=== PATIENT | male | born 1995 | race Caucasian/White ===

== ENCOUNTER 2018-07-24 17:32 | Emergency (ER) | payer OTHER ==
[~2018-07-24] VITALS: Ht 165.1 cm; Wt 74.5 kg
[2018-07-24] MEDS ORDERED: MULT1TAB18 PO (17:41)
--- NOTE | 2018-07-24 18:00 | ECGEPIP ---
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
[2018-07-24 18:38] LABS: BASO # 0.1 10^3/uL (0.0-0.2); BASO % 0.4 % (0.0-1.0); EOS # 0.1 10^3/uL (0.0-0.50); EOS % 1.1 % (0.0-3.0); HEMATOCRIT 44.2 % (42.0-52.0); HEMOGLOBIN 15.6 g/dl (13.5-17.5); LYMPH # 3.5 10^3/uL (1.5-6.5); LYMPH % 28.2 % (24.0-44.0); MEAN CORPUSCULAR HEMOGLOBIN 29.9 pg (27.0-33.0); MEAN CORPUSCULAR HGB CONC 35.3 g/dl (32.0-36.5); MEAN CORPUSCULAR VOLUME 84.7 fl (80.0-96.0); MONO # 0.6 10^3/uL (0.0-0.8); MONO % 4.5 % (0.0-5.0); NEUTROPHILS # 8.2 10^3/uL (1.8-7.7); NEUTROPHILS % 65.5 % (36.0-66.0); PLATELET COUNT, AUTOMATED 261 10^3/uL (150-450); RED BLOOD COUNT 5.22 10^6/uL (4.30-6.10); WHITE BLOOD COUNT 12.5 10^3/uL (4.0-10.0)
[2018-07-24 19:11] LABS: ALBUMIN 4.1 GM/DL (3.2-5.2); ALT/SGPT 44 U/L (12-78); BILIRUBIN,DIRECT 0.2 MG/DL (0.0-0.2); BILIRUBIN,TOTAL 0.6 MG/DL (0.2-1.0); BLOOD UREA NITROGEN 14 MG/DL (7-18); CALCIUM LEVEL 9.3 MG/DL (8.5-10.1); CARBON DIOXIDE LEVEL 31 MEQ/L (21-32); CHLORIDE LEVEL 102 MEQ/L (98-107); CPK CREATINE PHOSPHOKINASE 365 U/L (39-308); CREATININE FOR GFR 1.65 MG/DL (0.70-1.30); GLUCOSE, FASTING 104 MG/DL (70-100); LIPASE 80 U/L (73-393); MB/CK RELATIVE INDEX 0.74 (< OR =4); SODIUM LEVEL 141 MEQ/L (136-145); TOTAL PROTEIN 7.2 GM/DL (6.4-8.2); TROPONIN I < 0.02 NG/ML (< 0.10)
--- NOTE | 2018-07-24 19:52 | REPVR ---
EXAM: US Scrotum EXAM DATE/TIME: 07/24/2018 7:45 PM CLINICAL HISTORY: 22 years old, male; Pain; Scrotum pain; Additional info: Right side testicular pain TECHNIQUE: Real-time ultrasound of the scrotum and contents with color Doppler and image documentation. COMPARISON: No relevant prior studies available. FINDINGS: Right Testicle: The right testis is normal in size, shape and echotexture. It measures 4.3 cm x 2.1 cm x 2.3 cm. No intratesticular mass. Normal color Doppler blood flow. No torsion. Left Testicle: The left testis is normal in size, shape and echotexture. It measures 4.1 cm x 2.0 cm x 2.4 cm. No intratesticular mass. Normal color Doppler blood flow. No torsion. Epididymides: The right and left epididymis have normal appearances. Scrotum: No varicoceles or hernias are identified. IMPRESSION: Normal scrotal ultrasound. Electronically signed by: Silver Brambila On 07/24/2018 19:52:09 PM
[2018-07-24 20:37] LABS: CPK CREATINE PHOSPHOKINASE 379 U/L (39-308); MB/CK RELATIVE INDEX 0.74 (< OR =4); TROPONIN I < 0.02 NG/ML (< 0.10)
[2018-07-24 20:50] VITALS: BP 125/79
--- NOTE | 2018-07-25 08:35 | REP ---
Clinical: Acute chest pain . Comparison: None . Technique: PA and lateral. Findings: The mediastinum and cardiac silhouette are normal. The lung baires are clear and without acute consolidation, effusion, or pneumothorax. The skeletal structures are intact and normal. Impression: 1. No acute cardiopulmonary process. Electronically Signed by Geronimo Schwab MD 07/25/2018 08:26 A
--- NOTE | 2018-07-26 07:29 | ECGEPIP ---
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
== END 2018-07-24 20:51 | disposition home or self-care (01) ==
LOC: M ED 17:32
DX: R07.9 Chest pain, unspecified (principal); N50.811 Right testicular pain

== ENCOUNTER 2018-07-26 21:49 | Emergency (ER) | payer OTHER ==
[~2018-07-26] VITALS: Ht 165.1 cm; Wt 75.0 kg
[~2018-07-26 21:49] MED LIST: MULT1TAB18 PO
[2018-07-26 22:55] LABS: BASO % 0.3 % (0.0-1.0); EOS # 0.1 10^3/uL (0.0-0.50); EOS % 0.9 % (0.0-3.0); HEMATOCRIT 46.3 % (42.0-52.0); HEMOGLOBIN 16.3 g/dl (13.5-17.5); LYMPH # 2.4 10^3/uL (1.5-6.5); LYMPH % 17.5 % (24.0-44.0); MEAN CORPUSCULAR HEMOGLOBIN 29.8 pg (27.0-33.0); MEAN CORPUSCULAR HGB CONC 35.2 g/dl (32.0-36.5); MEAN CORPUSCULAR VOLUME 84.6 fl (80.0-96.0); MONO # 0.6 10^3/uL (0.0-0.8); MONO % 4.2 % (0.0-5.0); NEUTROPHILS # 10.6 10^3/uL (1.8-7.7); NEUTROPHILS % 76.8 % (36.0-66.0); PLATELET COUNT, AUTOMATED 265 10^3/uL (150-450); RED BLOOD COUNT 5.47 10^6/uL (4.30-6.10); WHITE BLOOD COUNT 13.8 10^3/uL (4.0-10.0)
[2018-07-26 23:22] LABS: ALBUMIN 4.8 GM/DL (3.2-5.2); ALT/SGPT 45 U/L (12-78); BILIRUBIN,DIRECT 0.2 MG/DL (0.0-0.2); BILIRUBIN,TOTAL 0.8 MG/DL (0.2-1.0); BLOOD UREA NITROGEN 19 MG/DL (7-18); CALCIUM LEVEL 9.5 MG/DL (8.5-10.1); CARBON DIOXIDE LEVEL 29 MEQ/L (21-32); CHLORIDE LEVEL 104 MEQ/L (98-107); CREATININE FOR GFR 1.33 MG/DL (0.70-1.30); GLUCOSE, FASTING 100 MG/DL (70-100); LIPASE 100 U/L (73-393); POTASSIUM SERUM 4.2 MEQ/L (3.5-5.1); SODIUM LEVEL 139 MEQ/L (136-145); TOTAL PROTEIN 8.1 GM/DL (6.4-8.2)
[2018-07-27] MEDS ORDERED: METOCLOPRAMIDE INJ 10MG/2ML VIAL (J2765) IV ONE (00:15)
[2018-07-27] MEDS ORDERED: NS 1,000 ML IV ONE (00:15)
[2018-07-27] MEDS ORDERED: MORPHINE 2 MG/ML 1ML SYRINGE (J2270) IV ONE (00:15)
[2018-07-27] MEDS ORDERED: ISOVUE-370 76% 100ML VIAL (Q9967) As Ordered ONE (00:21)
--- NOTE | 2018-07-27 01:19 | REPVR ---
EXAM: CT Abdomen and Pelvis With Contrast EXAM DATE/TIME: 07/27/2018 12:06 AM CLINICAL HISTORY: 22 years old, male; Pain; Abdominal pain; Generalized; Additional info: Abd pain, right sided more than left, nvd TECHNIQUE: Axial computed tomography images of the abdomen and pelvis with intravenous contrast. All CT scans at this facility use at least one of these dose optimization techniques: automated exposure control; mA and/or kV adjustment per patient size (includes targeted exams where dose is matched to clinical indication); or iterative reconstruction. Coronal and sagittal reformatted images were created and reviewed. CONTRAST: Contrast Material: 100 ml of iso; Contrast Route: ac COMPARISON: No relevant prior studies available. FINDINGS: LUNG BASES: No infiltrate or effusion. VASCULAR: Major vasculature is within normal limits. PERITONEAL : No free air or free fluid. GI: No hiatal hernia. The stomach contains some fluid and gas. The stomach is not sufficiently distended to evaluate wall thickening or exclude fold thickening. No appearance of bowel obstruction. Small nonspecific mesenteric lymph nodes are seen. There is some fluid within the colon. This is abnormal and could be correlated with diarrhea. Portions of the colon and rectum appear thick walled. Although some of this could be artifactual secondary to insufficient distention, colitis is suspected, most pronounced at the hepatic flexure of the colon. At the hepatic flexure, there is associated pericolonic inflammatory stranding. The cecum is spared. There are diverticula associated at the hepatic flexure of the colon. These do not appear to be surrounded by inflammation. There is a 10 mm isodense to contrast exophytic nodule along the medial aspect of the hepatic flexure of the colon. This could represent a diverticulum containing debris or calcification, however enhancement cannot be excluded. This could represent an area of angiodysplasia. Correlation for occult GI bleed. Consider non-emergent colonoscopy to exclude any possibility of an underlying mass. The appendix does not appear inflamed. HEPATOBILIARY, PANCREAS, SPLEEN: The upper most aspect of the hepatic dome is not included. Visualized sagittal hepatic length is 17.3 cm. No calcified gallstones or biliary dilation. No pancreatic inflammation. Spleen not enlarged. ADRENALS, KIDNEYS, BLADDER, RETROPERITONEAL: Adrenals within normal limits. No hydronephrosis. Symmetric renal enhancement. No perinephric stranding or fluid. No perivesical stranding. No bladder wall thickening. MUSCULOSKELETAL: Incomplete pars is defect noted at the right L5 pars interarticularis. There is some subchondral sclerosis within the superior femoral heads, likely secondary to chronic stress reaction. IMPRESSION: Colonic inflammatory changes, most pronounced at the hepatic flexure suggestive of colitis. Gastrointestinal findings and recommendations discussed above in detail. Other incidental findings discussed above. Electronically signed by: Veto Rousseau On 07/27/2018 01:19:02 AM
[2018-07-27] MEDS ORDERED: CIPR-249 PO (01:46)
[2018-07-27] MEDS ORDERED: FLAG500T PO (01:46)
[2018-07-27] MEDS ORDERED: DICY1CAP8 PO (01:46)
[2018-07-27] MEDS ORDERED: REGL10TA6 PO (01:46)
[2018-07-27 01:47] VITALS: BP 129/70
[2018-07-27] MEDS ORDERED: metroNIDAZOLE (FLAGYL) 500 MG TAB PO ONE (02:00)
[2018-07-27] MEDS ORDERED: METOCLOPRAMIDE 10 MG TAB PO ONE (02:00)
[2018-07-27] MEDS ORDERED: CIPROFLOXACIN 500 MG TAB PO ONE (02:00)
[2018-07-27] MEDS ORDERED: DICYCLOMINE 10 MG CAP PO ONE (02:00)
--- NOTE | 2018-07-27 16:20 | ED PDOC ---
Post-Departure Follow-Up edgardo rosa faxed formal report of ct abdp for fu Tamika Gudino MD Jul 27, 2018 16:20
== END 2018-07-27 02:02 | disposition home or self-care (01) ==
LOC: M ED 21:49
DX: K52.9 Noninfective gastroenteritis and colitis, unspecified (principal); Z91.013 Allergy to seafood
CPT/HCPCS: 36415; 74177; 80048; 80076; 81001; 83690; 85025; 96374; 96375; 99284; J2270; J2765; Q9967

== ENCOUNTER 2018-10-07 23:07 | Emergency (ER) | payer OTHER ==
[~2018-10-07] VITALS: Ht 165.1 cm; Wt 73.6 kg
[~2018-10-07 23:07] MED LIST changes: +CIPR-249 PO; +DICY1CAP8 PO; +FLAG500T PO; +REGL10TA6 PO
[2018-10-07] MEDS ORDERED: METAL LOCK LOOP XX ONE (23:26)
[2018-10-08] MEDS ORDERED: ASPIRIN 81 MG CHEW TABLET PO ONE (01:30)
[2018-10-08 01:47] LABS: BASO # 0.1 10^3/uL (0.0-0.2); BASO % 0.5 % (0.0-1.0); EOS # 0.4 10^3/uL (0.0-0.50); EOS % 3.8 % (0.0-3.0); HEMATOCRIT 42.7 % (42.0-52.0); HEMOGLOBIN 14.7 g/dl (13.5-17.5); LYMPH # 4.1 10^3/uL (1.5-6.5); MEAN CORPUSCULAR HEMOGLOBIN 30.1 pg (27.0-33.0); MEAN CORPUSCULAR HGB CONC 34.4 g/dl (32.0-36.5); MEAN CORPUSCULAR VOLUME 87.5 fl (80.0-96.0); MONO # 0.8 10^3/uL (0.0-0.8); MONO % 6.9 % (0.0-5.0); NEUTROPHILS # 5.5 10^3/uL (1.8-7.7); NEUTROPHILS % 50.5 % (36.0-66.0); PLATELET COUNT, AUTOMATED 222 10^3/uL (150-450); RED BLOOD COUNT 4.88 10^6/uL (4.30-6.10); WHITE BLOOD COUNT 10.9 10^3/uL (4.0-10.0)
[2018-10-08] MEDS ORDERED: KETOROLAC 30 MG/ML VIAL (J1885) IV ONE (02:00)
[2018-10-08 02:15] LABS: BLOOD UREA NITROGEN 19 MG/DL (7-18); CALCIUM LEVEL 9.1 MG/DL (8.5-10.1); CARBON DIOXIDE LEVEL 29 MEQ/L (21-32); CHLORIDE LEVEL 104 MEQ/L (98-107); CPK CREATINE PHOSPHOKINASE 592 U/L (39-308); CREATININE FOR GFR 1.22 MG/DL (0.70-1.30); GLUCOSE, FASTING 89 MG/DL (70-100); MB/CK RELATIVE INDEX 0.84 (< OR =4); POTASSIUM SERUM 3.6 MEQ/L (3.5-5.1); SODIUM LEVEL 139 MEQ/L (136-145); TROPONIN I < 0.02 NG/ML (< 0.10)
[2018-10-08 02:45] VITALS: BP 119/72
--- NOTE | 2018-10-08 06:04 | ECGEPIP ---
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
--- NOTE | 2018-10-08 08:23 | REP ---
Chest x-ray: Two views. History: Chest pain . Comparison study: July 24, 2018 . Findings: The lungs are well inflated and free of infiltrate. The pleural angles are sharp. The heart size is normal. Pulmonary vasculature is not increased. No significant bony abnormality is seen. Impression: Negative chest x-ray. Electronically Signed by Holden Willouhgby MD 10/08/2018 08:15 A
== END 2018-10-08 03:23 | disposition home or self-care (01) ==
LOC: M ED 23:07
DX: R07.89 Other chest pain (principal); Z79.899 Other long term (current) drug therapy; Z91.013 Allergy to seafood
CPT/HCPCS: 71046; 80048; 82550; 82553; 84484; 85025; 93005; 96374; 99284; J1885

== ENCOUNTER 2018-10-09 20:54 | Emergency (ER) | payer OTHER ==
[~2018-10-09] VITALS: Ht 165.1 cm; Wt 73.6 kg
[2018-10-09 21:54] LABS: BASO # 0.1 10^3/uL (0.0-0.2); BASO % 0.6 % (0.0-1.0); EOS # 0.4 10^3/uL (0.0-0.50); EOS % 4.9 % (0.0-3.0); HEMATOCRIT 44.5 % (42.0-52.0); HEMOGLOBIN 15.2 g/dl (13.5-17.5); LYMPH # 3.6 10^3/uL (1.5-6.5); LYMPH % 39.6 % (24.0-44.0); MEAN CORPUSCULAR HEMOGLOBIN 30.1 pg (27.0-33.0); MEAN CORPUSCULAR HGB CONC 34.2 g/dl (32.0-36.5); MEAN CORPUSCULAR VOLUME 88.1 fl (80.0-96.0); MONO # 0.6 10^3/uL (0.0-0.8); MONO % 6.7 % (0.0-5.0); NEUTROPHILS # 4.4 10^3/uL (1.8-7.7); PLATELET COUNT, AUTOMATED 237 10^3/uL (150-450); RED BLOOD COUNT 5.05 10^6/uL (4.30-6.10); WHITE BLOOD COUNT 9.1 10^3/uL (4.0-10.0)
[2018-10-09 22:29] LABS: BLOOD UREA NITROGEN 17 MG/DL (7-18); CALCIUM LEVEL 8.7 MG/DL (8.5-10.1); CARBON DIOXIDE LEVEL 29 MEQ/L (21-32); CHLORIDE LEVEL 105 MEQ/L (98-107); CPK CREATINE PHOSPHOKINASE 172 U/L (39-308); CREATININE FOR GFR 1.36 MG/DL (0.70-1.30); GLUCOSE, FASTING 94 MG/DL (70-100); MB/CK RELATIVE INDEX 0.64 (< OR =4); POTASSIUM SERUM 4.5 MEQ/L (3.5-5.1); SODIUM LEVEL 142 MEQ/L (136-145); TROPONIN I < 0.02 NG/ML (< 0.10)
[2018-10-09 22:34] VITALS: BP 119/67
--- NOTE | 2018-10-10 05:58 | ECGEPIP ---
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
== END 2018-10-09 22:55 | disposition home or self-care (01) ==
LOC: M ED 20:54
DX: R07.9 Chest pain, unspecified (principal); R00.1 Bradycardia, unspecified; K52.9 Noninfective gastroenteritis and colitis, unspecified; Z91.013 Allergy to seafood